=== PATIENT | female | born 2000 ===

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

== ENCOUNTER 2018-09-21 13:09 | Emergency (ER) | payer MEDICAID ==
[2018-09-21 13:10] VITALS: BMI 31.8
[2018-09-21 13:25] VITALS: TEMP 98.5
[2018-09-21] MEDS ORDERED: Sodium Chloride 0.9% 1,000 ML IV STA (13:29)
[2018-09-21 14:01] LABS: BASO # 0.01 K/mm3 (0.0-2.0); BASO % 0.1 % (0.0-3.0); EOS % 0.3 % (1.5-5.0); HEMOGLOBIN 12.2 g/dL (12.0-16.0); LYMPH % 18.4 % (22.0-35.0); MEAN CELL VOLUME 86.4 fl (80.0-105.0); MEAN CORPUSCULAR HEMOGLOBIN 28.6 pg (25.0-35.0); MEAN CORPUSCULAR HGB CONC 33.2 g/dl (31.0-37.0); MEAN PLATELET VOLUME 10.5 fl (7.0-11.0); MONO # 0.7 (0.1-0.6); RBC 4.26 10^6/uL (3.5-6.1); RED CELL DISTRIBUTION WIDTH 14.6 % (11.5-14.5)
[2018-09-21 14:19] LABS: ALB/GLOB RATIO 1.1 (1.1-1.8); ALBUMIN 3.7 g/dL (3.0-4.8); ALT/SGPT 26 U/L (7-56); AST/SGOT 40 U/L (14-36); BLOOD UREA NITROGEN 9 mg/dL (7-21); CALCIUM 9.6 mg/dL (8.4-10.5); GFR NON-AFRICAN AMERICAN > 60
[2018-09-21 15:03] VITALS: BP 145/87; PULSE 98; RESP 17; O2SAT 98
--- NOTE | 2018-09-21 15:41 | US ---
Date of service: 09/21/2018 PROCEDURE: Limited ultrasound HISTORY: viability COMPARISON: None TECHNIQUE: Standard protocol for this study/examination. FINDINGS: Cephalic presentation. Anterior placenta. No evidence of abruption or previa Gestational age derived from LMP 36 weeks 3 days. MARK 10/16/2018. Gestational age derived from the following biometric parameters 36 weeks 2 days. MARK 10/17/2018. Biparietal diameter 9.29 cm Head circumference 31.83 cm Abdominal circumference 31.22 cm Femur length 7.10 cm Estimated weight 2779 g Calculated cardiac rate 131 beats per min. Closed cervix measuring 3.70 cm IMPRESSION: 36 weeks 2 days live intrauterine gestation. Gestational concordance documented.
--- NOTE | 2018-09-21 17:15 | ED PDOC ---
Arrival/HPI - General Chief Complaint: Female Genitourinary Historian: Patient - History of Present Illness Narrative History of Present Illness (Text): 09/21/18 17:13 A 18 year old female, , currently 36 weeks , presents to the emergency department for evaluation for back pain. Patient reports she was upstairs in the hospital and her father suddenly. She has had care with normal ultrasounds up to this point. Patient denies any vaginal bleeding/discharge, contractions, or any other complaints at this time. Past Medical History - Provider Review Nursing Documentation Reviewed: Yes - Psychiatric Hx Psychophysiologic Disorder: No Hx Substance Use: No Family/Social History - Physician Review Nursing Documentation Reviewed: Yes Family/Social History: No Known Family HX Smoking Status: Never Smoked Hx Alcohol Use: No Hx Substance Use: No Allergies/Home Meds Allergies/Adverse Reactions: Allergies No Known Allergies Allergy (Verified 09/21/18 13:19) Home Medications: Home Meds Medication Instructions Recorded Confirmed Multivit/Folic Acid/I 1 tab PO DAILY 09/21/18 09/21/18 [] Review of Systems - Physician Review All systems were reviewed & negative as marked: Yes - Review of Systems Genitourinary Female: absent: Vaginal Bleeding, Vaginal Discharge, Other (no contractions) Musculoskeletal: Back Pain Physical Exam Vital Signs Reviewed: Yes Vital Signs Temp Pulse Resp BP Pulse Ox 09/21/18 15:03 98 H 17 145/87 98 09/21/18 13:20 98.5 F 113 H 16 150/104 H 97 Temperature: Afebrile Blood Pressure: Normal Pulse: Regular Respiratory Rate: Normal Appearance: Positive for: Well-Appearing, Non-Toxic, Comfortable Pain Distress: None Mental Status: Positive for: Alert and Oriented X 3 - Systems Exam Head: Present: Atraumatic, Normocephalic Pupils: Present: PERRL Extroacular Muscles: Present: EOMI Conjunctiva: Present: Normal Mouth: Present: Moist Mucous Membranes Neck: Present: Normal Range of Motion Respiratory/Chest: Present: Clear to Auscultation, Good Air Exchange. No: Respiratory Distress, Accessory Muscle Use Cardiovascular: Present: Regular Rate and Rhythm, Normal S1, S2. No: Murmurs Abdomen: Present: Other (uterine fundus 2 cm below the xiphoid process). No: Tenderness, Distention, Peritoneal Signs Back: Present: Normal Inspection Upper Extremity: Present: Normal Inspection. No: Cyanosis, Edema Lower Extremity: Present: Normal Inspection. No: Edema Neurological: Present: GCS=15, CN II-XII Intact, Speech Normal Skin: Present: Warm, Dry, Normal Color. No: Rashes Psychiatric: Present: Alert, Oriented x 3, Normal Insight, Normal Concentration Medical Decision Making ED Course and Treatment: 09/21/18 17:17 Impression: 18 year old female with back pain. Patient is currently 36 weeks , . Physical exam shows uterine fundus 2 cm below the xiphoid process. Plan: -- Labs -- Ultrasound -- IV Fluids -- Reassess and disposition Progress Notes: 09/21/2018 15:38 Ultrasound IMPRESSION: 37 weeks 2 days live intrauterine gestation. Gestational concordance documented. Dictator: Jarret Hernandez MD - Lab Interpretations Lab Results: Total Bilirubin 0.6 mg/dL (0.2-1.3) 09/21/18 13:45 AST 40 U/L (14-36) H 09/21/18 13:45 ALT 26 U/L (7-56) 09/21/18 13:45 Alkaline Phosphatase 216 U/L (38-126) H D 09/21/18 13:45 Total Protein 7.2 g/dL (5.8-8.3) 09/21/18 13:45 Albumin 3.7 g/dL (3.0-4.8) 09/21/18 13:45 Globulin 3.5 gm/dL 09/21/18 13:45 Albumin/Globulin Ratio 1.1 (1.1-1.8) 09/21/18 13:45 - RAD Interpretation Radiology Orders: 09/21/18 13:27 AGE [US] Stat - Medication Orders Current Medication Orders: Discontinued Medications Sodium Chloride (Sodium Chloride 0.9%) 1,000 mls @ 999 mls/hr IV .Q1H1M STA Stop: 09/21/18 14:29 Last Admin: 09/21/18 13:43 Dose: 999 mls/hr eMAR Start Stop Document 09/21/18 13:43 CD (Rec: 09/21/18 13:44 CD [facility] [id number]) Intravenous Solution Start Date 09/21/18 Start Time 13:43 End Date 09/21/18 End time 14:44 Total Infusion Time 61 - Scribe Statement The provider has reviewed the documentation as recorded by the Scribe Casimiro Hoffman Provider Scribe Attestation: All medical record entries made by the Scribe were at my direction and personally dictated by me. I have reviewed the chart and agree that the record accurately reflects my personal performance of the history, physical exam, medical decision making, and the department course for this patient. I have also personally directed, reviewed, and agree with the discharge instructions and d isposition. Disposition/Present on Arrival - Present on Arrival Any Indicators Present on Arrival: No History of DVT/PE: No History of Uncontrolled Diabetes: No Urinary Catheter: No History of Decub. Ulcer: No History Surgical Site Infection Following: None - Disposition Have Diagnosis and Disposition been Completed?: Yes Diagnosis: Back pain during Disposition: HOME/ ROUTINE Disposition Time: 14:30 Condition: GOOD Additional Instructions: KIRA BRADFORD, thank you for letting us take care of you today. The emergency medical care you received today was directed at your acute symptoms. If you were prescribed any medication, please fill it and take as directed. It may take several days for your symptoms to resolve. Return to the Emergency Department if your symptoms worsen, do not improve, or if you have any other problems. Please contact your doctor or call one of the physicians/clinics you have been referred to that are listed on the Patient Visit Information form that is included in your discharge packet. Bring any paperwork you were given at discharge with you along with any medications you are taking to your follow up visit. Our treatment cannot replace ongoing medical care by a primary care p lorenzo outside of the emergency department. Thank you for allowing the [facility] team to be part of your care today. Follow up with your OB as scheduled for re-evaluation. Good luck. Referrals: [facility], [Non-Staff] - Follow up with primary Forms: [employer] (Albanian)
== END 2018-09-21 15:20 | disposition home or self-care (01) ==
LOC: ED 13:09
DX: O26.893 Other specified pregnancy related conditions, third trimester (principal); M54.9 Dorsalgia, unspecified; Z3A.36 36 weeks gestation of pregnancy
CPT/HCPCS: 76815; 80053; 85025; 96360; 99283; J7030